=== PATIENT | male | born 1960 | race Caucasian/White ===

== ENCOUNTER 2017-10-09 07:05 | Day surgery (SDC) | payer MEDICARE, MEDICAID ==
[~2017-10-09] VITALS: Ht 180.3 cm; Wt 103.9 kg
[~2017-10-09 07:05] MED LIST: ALBU18HF2 INH; ALBU8.5H8 INH; ALPR1TAB2 PO; AMIT-189 PO; DIGO125T4 PO; LEVOTHYROXINE PO; MELO-102 PO; METO25TA6 PO; TIOT18CA3 INH; VERA240T PO
[2017-10-09] MEDS ORDERED: LIDOcaine 1%/PF (10mg/ml) 5ml vial ONE (07:23)
[2017-10-09] MEDS ORDERED: normal saline 1000ml 1,000 ML IV SCH (07:30)
[2017-10-09] MEDS ORDERED: HYDR-565 PO (07:36)
[2017-10-09 07:43] VITALS: BP 132/84
[2017-10-09 07:45] LABS: BASOPHILS # (AUTO) 0.1 X10'3 (0-0.2); BASOPHILS % (AUTO) 1.5 % (0-1); EOSINOPHILS # (AUTO) 0.2 X10'3 (0-0.9); EOSINOPHILS % (AUTO) 2.6 % (0-6); HEMATOCRIT 39.9 % (42.0-52.0); HEMOGLOBIN 13.4 g/dl (14.0-17.9); LYMPHOCYTES # (AUTO) 0.8 X10'3 (1.1-4.8); LYMPHOCYTES % (AUTO) 9.6 % (21-51); MEAN CORPUSCULAR HGB CONC 33.6 % (33.0-36.5); MEAN CORPUSCULAR VOLUME 89.2 FL (78-98); MEAN PLATELET VOLUME 6.5 FL (7.4-10.4); MONOCYTES # (AUTO) 0.7 X10'3 (0-0.9); NEUTROPHILS # (AUTO) 6.4 X10'3 (1.8-7.7); NEUTROPHILS % (AUTO) 78.3 % (42-75); PLATELET COUNT 463 X10'3 (140-440); RED BLOOD COUNT 4.48 X10'6 (4.70-6.10); RED CELL DISTRIBUTION WIDTH 13.8 % (11.5-14.5); WHITE BLOOD COUNT 8.2 X10'3 (4.5-11.0)
[2017-10-09 08:08] LABS: PARTIAL THROMBOPLASTIN TIME 31 SECONDS (22-32); PROTHROMBIN TIME 10.7 SECONDS (9.0-12.0)
[2017-10-09] MEDS ORDERED: ALPRAZolam 0.5mg tablet PO PRN (09:25)
[2017-10-09] MEDS ORDERED: heparin sodium, porcine/PF 100unit/ml 5ML syringe ONE (12:27)
[2017-10-09 13:17] LABS: ALANINE AMINOTRANSFERASE 16 U/L (12-78); ALBUMIN 2.8 G/DL (3.4-5.0); ALBUMIN/GLOBULIN RATIO 0.6 (1.1-1.5); ALKALINE PHOSPHATASE 86 IU/L (46-116); ANION GAP 6 (8-16); ASPARTATE AMINO TRANSFERASE 32 U/L (10-37); BILIRUBIN,TOTAL 0.7 MG/DL (0.1-1.0); BLOOD UREA NITROGEN 6 MG/DL (7-18); CALCIUM 8.5 MG/DL (8.5-10.1); CHLORIDE 98 MMOL/L (99-107); GLUCOSE 77 MG/DL (70-104); POTASSIUM 3.9 MMOL/L (3.5-5.1); SODIUM 143 MMOL/L (135-145); TOTAL CARBON DIOXIDE 39.5 MMOL/L (24-32); TOTAL PROTEIN 7.5 G/DL (6.4-8.2); eGFR > 90 ML/MIN
[2017-10-09] MEDS ORDERED: ringers solution, lacted 1,000 ML IV SCH (13:22)
[2017-10-09] MEDS ORDERED: fentaNYL/PF 50MCG/1 ML 2ML syringe IV PRN ×2 (13:25)
[2017-10-09] MEDS ORDERED: morphine 2 MG/ML inj. syringe IV PRN ×2 (13:25)
[2017-10-09] MEDS ORDERED: hydrALAZINE 20mg/ml inj. IV PRN (13:25)
[2017-10-09] MEDS ORDERED: ondansetron/PF 4mg/2ml inj IV PRN (13:25)
[2017-10-09] MEDS ORDERED: labetalol 5mg/ml 20ml inj. IV PRN (13:25)
[2017-10-09] MEDS ORDERED: MIDAZolam 5mg/5ml vial ONE (13:27)
[2017-10-09] MEDS ORDERED: fentaNYL/PF 50MCG/1 ML 2ML syringe ONE (13:27)
[2017-10-09] MEDS ORDERED: LIDOcaine 2% (20mg/ml) 5ml vial ONE (13:28)
[2017-10-09] MEDS ORDERED: propofol inj 20 ML IV ONE (13:28)
[2017-10-09 14:05] VITALS: BP 150/87
== END 2017-10-09 14:22 | disposition home or self-care (01) ==
LOC: SSTAY O 07:05
PROVIDERS: ATTEND Radiology Diagnostic Radiology
DX: C85.10 Unspecified B-cell lymphoma, unspecified site (principal); Z53.8 Procedure and treatment not carried out for other reasons; E03.9 Hypothyroidism, unspecified; E78.5 Hyperlipidemia, unspecified; F41.9 Anxiety disorder, unspecified; I10 Essential (primary) hypertension; I48.91 Unspecified atrial fibrillation; J44.9 Chronic obstructive pulmonary disease, unspecified; Z88.0 Allergy status to penicillin
CPT/HCPCS: 36415; 71046; 80053; 85025; 85610; 85730; J2001; J2704; J7030; J1642; J2250; J3010; J7120